=== PATIENT | female | born 1945 | race Caucasian/White ===

== ENCOUNTER 2021-06-23 07:05 | Inpatient (IN) | payer OTHER ==
[2021-06-23] MEDS ORDERED: LACTATED RINGERS SOLUTION 1000 ML INFUS.BAG IV ONE (08:41)
[2021-06-23 08:50] LABS: BASO % 0.6 % (0-2.0); HEMATOCRIT 35.2 % (32.4-45.2); HEMOGLOBIN 11.9 GM/dL (10.7-15.3); LYMPH % 7.9 % (8-40); MCH 30.7 pg (25.7-33.7); MCHC 33.9 g/dl (32.0-36.0); MEAN CELL VOLUME 90.6 fl (80-96); MEAN PLT VOLUME 7.6 fl (7.5-11.1); MONO % 5.2 % (3.8-10.2); NEUT % 86.3 % (42.8-82.8); PLATELET COUNT 176 10^3/uL (134-434); RBC 3.88 M/mm3 (3.60-5.2); RDW 13.3 % (11.6-15.6); WHITE BLOOD COUNT 11.4 K/mm3 (4.0-10.0)
[2021-06-23 09:00] LABS: INR 1.17 (0.83-1.09); PROTHROMBIN TIME (PATIENT) 14.3 SEC (9.7-13.0)
[2021-06-23 09:03] LABS: ACTIVATED PTT 35.2 SECONDS (25.2-36.5)
[2021-06-23] MEDS ORDERED: ACETAMINOPHEN 1000 MG/100 ML VIAL (NON FORMULARY) IVPB ONE (09:03)
[2021-06-23] MEDS ORDERED: MAG HYDROX/AL HYDROX/SIMETH 30 ML UNIT-DOSE CUP PO ONE (09:03)
[2021-06-23 09:09] LABS: CALCIUM 8.6 mg/dL (8.5-10.1)
[2021-06-23 09:10] LABS: ALBUMIN 3.2 g/dl (3.4-5.0); BLOOD UREA NITROGEN 13.9 mg/dL (7-18)
[2021-06-23 09:12] LABS: CHOLESTEROL 170 mg/dL (50-200); TRIGLYCERIDES 119 mg/dL (0-150)
[2021-06-23 09:13] LABS: CREATININE 0.8 mg/dL (0.55-1.3); LDL CHOLESTEROL (ONLY SJRH) 86 mg/dL (5-100)
[2021-06-23 09:14] LABS: BILIRUBIN,TOTAL 0.4 mg/dL (0.2-1); TOT PROT 7.5 g/dl (6.4-8.2)
[2021-06-23 09:15] LABS: HDL CHOLESTEROL 63 mg/dL (40-60)
[2021-06-23] MEDS ORDERED: MAG HYDROX/AL HYDROX/SIMETH 30 ML UNIT-DOSE CUP ONE (09:58)
[2021-06-23 10:31] LABS: EPI CELLS 11 /uL (0-25.1); HYALINE CASTS 2 /uL (0-3.1); PH,URINE 6.5 (5.0-8.0); URINE APPEARANCE CLEAR; URINE BACTERIA 48 /uL (0-1359); URINE BILIRUBIN NEGATIVE (NEGATIVE); URINE COLOR YELLOW; URINE GLUCOSE (UA) NEGATIVE (NEGATIVE); URINE KETONE 1+ (NEGATIVE); URINE LEUK ESTERASE NEGATIVE (NEGATIVE); URINE NITRITE NEGATIVE (NEGATIVE); URINE PROTEIN 3+ (NEGATIVE); URINE RBC 353 /uL (0-23.9); URINE WBC 18 /uL (0-25.8)
[2021-06-23 10:40] LABS: OPIATES, URI NEGATIVE (NEGATIVE); PHENCYCLIDINE,URINE NEGATIVE (NEGATIVE); URINE BARBITURATES NEGATIVE (NEGATIVE)
[2021-06-23 10:46] LABS: COCAINE, UR NEGATIVE (NEGATIVE); METHADONE, UR NEGATIVE (NEGATIVE); URINE AMPHETAMINES NEGATIVE (NEGATIVE); URINE BENZODIAZEPINES NEGATIVE (NEGATIVE)
[2021-06-23 11:45] LABS: ANISOCYTOSIS 0; HELMET CELLS 0; HOWELL-JOLLY BODIES 0; MACROCYTOSIS 0; OVALOCYTE 0; PLATELET ESTIMATE NORMAL; ROULEAU 0; SICKELED CELLS 0; TARGET CELLS 0; TEAR DROP CELLS 0; TOXIC GRANULATION 0
[2021-06-23 11:52] LABS: VENOUS BASE EXCESS 0.4 mmol/L (-2-2); VENOUS O2 SATURATION 84.1 % (70-80); VENOUS PCO2 34.2 mmHg (38-52); VENOUS PH 7.46 (7.310-7.410)
[2021-06-23] MEDS ORDERED: SODIUM CHLORIDE 0.9% 500 ML INFUS.BAG IV ONE (14:00)
[2021-06-23] MEDS ORDERED: FAMOTIDINE 20 MG/50 ML IVPB 20 MG/50 ML MG IVPB ONE ×2 (14:06→14:18)
[2021-06-23] MEDS ORDERED: ASPIRIN 81 MG CHEWABLE TABLETS PO ONE (14:06)
[2021-06-23] MEDS ORDERED: ASPIRIN 81 MG CHEWABLE TABLETS ONE (14:18)
[2021-06-23] MEDS ORDERED: CEFTRIAXONE 1,000 MG in DEXTROSE 5%-WATER - 50 ML IVPB ONE (14:32)
[2021-06-23] MEDS ORDERED: AZITHROMYCIN IVPB 500 MG in DEXTROSE 5%-WATER - 250 ML IVPB ONE (14:32)
[2021-06-23] MEDS ORDERED: CEFTRIAXONE 1 GM/50 ML BAG ONE (14:53)
[2021-06-23] MEDS ORDERED: AZITHROMYCIN IVPB 500 MG/250 ML BAG IVPB ONE (14:54)
[2021-06-23] MEDS: ACETAMINOPHEN 1000 MG/100 ML VIAL (NON FORMULARY) IVPB PRN (18:57)
[2021-06-23] MEDS: SODIUM CHLORIDE 1,000 ML IV SCH (18:58)
[2021-06-23 19:39] LABS: ARTERIAL BLD GAS O2 SATURATION 94.6 % (95-98); ARTERIAL BLOOD GAS BASE EXCESS 1.6 mmol/L (-2-2); ARTERIAL BLOOD GAS PO2 64.3 mmHg (80-100); ARTERIAL BLOOD GAS pH 7.512 (7.350-7.450)
[2021-06-23 19:53] LABS: ALLENS TEST POSITIVE; PT'S TEMP 101.4
[2021-06-23] MEDS ORDERED: LORazepam 2 MG/ML SDV VIAL IVPUSH ONE (21:11)
[2021-06-23 23:21] LABS: HIV INTERPRETATION NEGATIVE (NEGATIVE)
[2021-06-24] MEDS: NYSTATIN 500,000 UNITS/5 ML SUSPENSION PO SCH ×2 (00:05→06:56)
[2021-06-24] MEDS: ACETAMINOPHEN 1000 MG/100 ML VIAL (NON FORMULARY) IVPB PRN (06:50)
[2021-06-24 08:14] LABS: BASO % 0.2 % (0-2.0); EOS % 0.1 % (0-4.5); HEMATOCRIT 32.4 % (32.4-45.2); HEMOGLOBIN 10.9 GM/dL (10.7-15.3); MCH 30.6 pg (25.7-33.7); MCHC 33.8 g/dl (32.0-36.0); MEAN CELL VOLUME 90.5 fl (80-96); NEUT % 88.7 % (42.8-82.8); PLATELET COUNT 160 10^3/uL (134-434); RBC 3.57 M/mm3 (3.60-5.2); RDW 13.4 % (11.6-15.6); WHITE BLOOD COUNT 8.8 K/mm3 (4.0-10.0)
[2021-06-24] MEDS ORDERED: DEXTROSE 5%-WATER 100 ML IVPB ONE ×2 (08:32→17:21)
[2021-06-24] MEDS ORDERED: PIPERACILLIN/TAZOBACTAM 4.5 GM VIAL IVPB ONE ×2 (08:32→17:21)
[2021-06-24 08:34] LABS: ALBUMIN 2.6 g/dl (3.4-5.0); CALCIUM 8.3 mg/dL (8.5-10.1); MAGNESIUM 2.5 mg/dL (1.8-2.4)
[2021-06-24 08:37] LABS: CREATININE 0.5 mg/dL (0.55-1.3); PHOSPHOROUS 2.2 mg/dL (2.5-4.9)
[2021-06-24 08:39] LABS: BILIRUBIN,TOTAL 0.4 mg/dL (0.2-1); TOT PROT 6.3 g/dl (6.4-8.2)
[2021-06-24] MEDS ORDERED: PIPERACILLIN/TAZOB 4.5 GM 4.5 GM in DEXTROSE 5%-WATER 100 ML IVPB SCH (09:00)
[2021-06-24] MEDS: ENOXAPARIN NA (PORCINE) 40 MG/0.4 ML DISP.SYRIN SQ SCH (09:38)
[2021-06-24] MEDS: PANTOPRAZOLE SODIUM 40 MG VIAL IVPUSH SCH (09:43)
[2021-06-24] MEDS: SODIUM CHLORIDE 1,000 ML IV SCH ×2 (09:44→18:03)
[2021-06-24] MEDS ORDERED: AZITHROMYCIN IVPB 500 MG in DEXTROSE 5%-WATER - 250 ML IVPB SCH (10:00)
[2021-06-24] MEDS ORDERED: CEFTRIAXONE 1 GM in DEXTROSE 5%-WATER - 50 ML IVPB SCH (10:00)
[2021-06-24] MEDS ORDERED: AZITHROMYCIN IVPB 500 MG/250 ML BAG IVPB SCH (10:00)
[2021-06-24] MEDS ORDERED: NAPH,MB-DB/K PH,MBDB POWDER PACKET PO ONE (11:57)
[2021-06-24] MEDS: AZITHROMYCIN IVPB 500 MG/250 ML BAG IVPB SCH (12:49)
[2021-06-24] MEDS ORDERED: NAPH,MB-DB/K PH,MBDB POWDER PACKET PO SCH (14:00)
[2021-06-24] MEDS: NAPH,MB-DB/K PH,MBDB POWDER PACKET PO SCH ×2 (15:20→21:27)
[2021-06-24] MEDS: PIPERACILLIN/TAZOB 4.5 GM 4.5 GM in DEXTROSE 5%-WATER 100 ML IVPB SCH (18:04)
[2021-06-24] MEDS ORDERED: ACETAMINOPHEN 325 MG TABLET (FP) PO PRN (18:18)
[2021-06-25] MEDS ORDERED: PIPERACILLIN/TAZOBACTAM 4.5 GM VIAL IVPB ONE ×2 (00:51→08:50)
[2021-06-25] MEDS ORDERED: DEXTROSE 5%-WATER 100 ML IVPB ONE ×2 (00:52→08:50)
[2021-06-25] MEDS: SODIUM CHLORIDE 1,000 ML IV SCH ×2 (00:59→19:05)
[2021-06-25] MEDS: PIPERACILLIN/TAZOB 4.5 GM 4.5 GM in DEXTROSE 5%-WATER 100 ML IVPB SCH ×2 (01:10→09:22)
[2021-06-25] MEDS: NAPH,MB-DB/K PH,MBDB POWDER PACKET PO SCH (05:43)
[2021-06-25 07:59] LABS: HEMATOCRIT 32.5 % (32.4-45.2); HEMOGLOBIN 11.1 GM/dL (10.7-15.3); MCH 31.3 pg (25.7-33.7); MCHC 34.1 g/dl (32.0-36.0); MEAN CELL VOLUME 91.7 fl (80-96); MEAN PLT VOLUME 8.3 fl (7.5-11.1); PLATELET COUNT 175 10^3/uL (134-434); RBC 3.55 M/mm3 (3.60-5.2); RDW 13.6 % (11.6-15.6); WHITE BLOOD COUNT 6.7 K/mm3 (4.0-10.0)
[2021-06-25 08:27] LABS: BLOOD UREA NITROGEN 10.6 mg/dL (7-18)
[2021-06-25 08:28] LABS: ALBUMIN 2.4 g/dl (3.4-5.0)
[2021-06-25 08:29] LABS: MAGNESIUM 2.4 mg/dL (1.8-2.4)
[2021-06-25 08:32] LABS: CREATININE 0.5 mg/dL (0.55-1.3); PHOSPHOROUS 2.9 mg/dL (2.5-4.9)
[2021-06-25 08:33] LABS: BILIRUBIN,TOTAL 0.3 mg/dL (0.2-1)
[2021-06-25] MEDS ORDERED: PIPERACILLIN/TAZOB 4.5 GM 4.5 GM in DEXTROSE 5%-WATER 100 ML IVPB SCH (09:00)
[2021-06-25] MEDS: ENOXAPARIN NA (PORCINE) 40 MG/0.4 ML DISP.SYRIN SQ SCH (09:22)
[2021-06-25] MEDS: AZITHROMYCIN IVPB 500 MG/250 ML BAG IVPB SCH (09:22)
[2021-06-25] MEDS: PANTOPRAZOLE SODIUM 40 MG VIAL IVPUSH SCH (09:22)
[2021-06-25 22:39] VITALS: BMI 27.4
[2021-06-26 08:28] LABS: BLOOD UREA NITROGEN 9.3 mg/dL (7-18); CALCIUM 8.4 mg/dL (8.5-10.1)
[2021-06-26 08:29] LABS: ALBUMIN 2.4 g/dl (3.4-5.0)
[2021-06-26 08:30] LABS: CREATININE 0.4 mg/dL (0.55-1.3)
[2021-06-26 08:34] LABS: BILIRUBIN,TOTAL 0.3 mg/dL (0.2-1); TOT PROT 6.2 g/dl (6.4-8.2)
[2021-06-26] MEDS: ENOXAPARIN NA (PORCINE) 40 MG/0.4 ML DISP.SYRIN SQ SCH (09:39)
[2021-06-26] MEDS: AZITHROMYCIN IVPB 500 MG/250 ML BAG IVPB SCH (09:39)
[2021-06-26] MEDS: PANTOPRAZOLE 40 MG TABLET PO SCH (09:39)
[2021-06-26 13:29] LABS: BASO % 0.5 % (0-2.0); EOS % 0.5 % (0-4.5); HEMATOCRIT 31.6 % (32.4-45.2); HEMOGLOBIN 10.8 GM/dL (10.7-15.3); LYMPH % 16.3 % (8-40); MCH 30.9 pg (25.7-33.7); MCHC 34.1 g/dl (32.0-36.0); MEAN CELL VOLUME 90.6 fl (80-96); MEAN PLT VOLUME 7.7 fl (7.5-11.1); MONO % 8.2 % (3.8-10.2); NEUT % 74.5 % (42.8-82.8); PLATELET COUNT 204 10^3/uL (134-434); RBC 3.49 M/mm3 (3.60-5.2); RDW 13.7 % (11.6-15.6); WHITE BLOOD COUNT 7.4 K/mm3 (4.0-10.0)
[2021-06-26 14:34] LABS: ANISOCYTOSIS 0; MACROCYTOSIS 0; PLATELET ESTIMATE NORMAL
[2021-06-26] MEDS: SODIUM CHLORIDE 1,000 ML IV SCH (20:24)
[2021-06-27 07:52] LABS: HEMATOCRIT 31.5 % (32.4-45.2); HEMOGLOBIN 10.7 GM/dL (10.7-15.3); MEAN PLT VOLUME 7.7 fl (7.5-11.1); PLATELET COUNT 252 10^3/uL (134-434); RBC 3.46 M/mm3 (3.60-5.2); RDW 13.2 % (11.6-15.6); WHITE BLOOD COUNT 6.3 K/mm3 (4.0-10.0)
[2021-06-27 08:07] LABS: ALBUMIN 2.4 g/dl (3.4-5.0); BLOOD UREA NITROGEN 10.3 mg/dL (7-18); CALCIUM 8.3 mg/dL (8.5-10.1)
[2021-06-27 08:08] LABS: MAGNESIUM 2.4 mg/dL (1.8-2.4)
[2021-06-27 08:11] LABS: CREATININE 0.4 mg/dL (0.55-1.3); PHOSPHOROUS 3.1 mg/dL (2.5-4.9)
[2021-06-27 08:12] LABS: BILIRUBIN,TOTAL 0.2 mg/dL (0.2-1); TOT PROT 6.1 g/dl (6.4-8.2)
[2021-06-27] MEDS ORDERED: LACTOBACILLUS ACIDOPHILUS 1 TABLET PO SCH (10:00)
[2021-06-27] MEDS: ENOXAPARIN NA (PORCINE) 40 MG/0.4 ML DISP.SYRIN SQ SCH (10:46)
[2021-06-27] MEDS: AZITHROMYCIN IVPB 500 MG/250 ML BAG IVPB SCH (10:46)
[2021-06-27] MEDS: PANTOPRAZOLE 40 MG TABLET PO SCH (10:46)
[2021-06-27 14:01] VITALS: BP 124/47; PULSE 83; TEMP 98
== END 2021-06-27 17:48 | disposition home or self-care (01) | DRG 177 ==
LOC: JER 07:05 → JERBED 08:59 → J4W 15:43
PROVIDERS: ADMIT Internal Medicine; ATTEND Internal Medicine
DX: A48.1 Legionnaires' disease (principal); G93.41 Metabolic encephalopathy; M62.82 Rhabdomyolysis; Q44.6 Cystic disease of liver; E87.1 Hypo-osmolality and hyponatremia; K76.89 Other specified diseases of liver; R19.7 Diarrhea, unspecified; R74.01 Elevation of levels of liver transaminase levels; J69.0 Pneumonitis due to inhalation of food and vomit; R47.81 Slurred speech
CPT/HCPCS: 36415; 36600; 70450-TC; 70551-TC; 71045-TC-FY; 74177-TC; 80053; 80061; 80074; 80307; 81003; 82140; 82550; 82553; 82607; 82746; 82803; 82962; 83036; 83615; 83690; 83721; 83735; 84100; 84439; 84443; 84484; 85025; 85027; 85610; 85730; 86682; 86753; 86803; 86850; 86900; 86901; 87040; 87086; 87389; 87899; 93005; 93010; 94761; 99285-25; C9803; J0131; Q9967; U0003; U0005

== ENCOUNTER 2021-08-22 04:53 | Day surgery (SDC) | payer OTHER ==
[2021-08-21 11:03] VITALS: BMI 26.9
[2021-08-22 11:55] VITALS: TEMP 97.5
[2021-08-22 12:46] VITALS: BP 144/70; PULSE 62
== END 2021-08-22 13:08 | disposition home or self-care (01) ==
LOC: JASU-ENDO 04:53
PROVIDERS: ATTEND Internal Medicine Gastroenterology
PROC: 0DB78ZX Excision of Stomach, Pylorus, Via Natural or Artificial Opening Endoscopic, Diagnostic (ICD-10-PCS; 2021-08-22)
PROC: 0DB98ZX Excision of Duodenum, Via Natural or Artificial Opening Endoscopic, Diagnostic (ICD-10-PCS; principal; 2021-08-22 11:00)
DX: K29.40 Chronic atrophic gastritis without bleeding (principal); K44.9 Diaphragmatic hernia without obstruction or gangrene; R93.3 Abnormal findings on diagnostic imaging of other parts of digestive tract; R10.13 Epigastric pain; Z80.0 Family history of malignant neoplasm of digestive organs